=== PATIENT | male | born 1955 | race Caucasian/White ===

== ENCOUNTER 2024-11-02 08:46 | Emergency (ER) | payer MEDICARE ==
[~2024-11-02] VITALS: Ht 180.3 cm; Wt 77.3 kg
[~2024-11-02 08:46] MED LIST: RANI-648 PO
[2024-11-02 08:51] VITALS: TEMP 97.6
[2024-11-02] MEDS: morphine 4 MG/ML inj SYRINge IV ONE (09:22)
[2024-11-02] MEDS: ondansetron/PF 4mg/2ml inj IV ONE (09:22)
[2024-11-02 09:45] LABS: BASOPHILS % (AUTO) 1.3 % (0-1); EOSINOPHILS # (AUTO) 0.1 X10'3 (0-0.9); EOSINOPHILS % (AUTO) 3.6 % (0-6); HEMATOCRIT 43.2 % (42.0-52.0); HEMOGLOBIN 15.3 g/dl (14.0-17.9); LYMPHOCYTES # (AUTO) 1.2 X10'3 (1.1-4.8); LYMPHOCYTES % (AUTO) 35.5 % (21-51); MEAN CORPUSCULAR HEMOGLOBIN 33.6 PG (27.0-31.0); MEAN CORPUSCULAR HGB CONC 35.4 g/dL (33.0-36.5); MEAN CORPUSCULAR VOLUME 94.9 FL (78-98); MEAN PLATELET VOLUME 6.8 FL (7.4-10.4); MONOCYTES # (AUTO) 0.4 X10'3 (0-0.9); MONOCYTES % (AUTO) 10.7 % (2-12); NEUTROPHILS # (AUTO) 1.6 X10'3 (1.8-7.7); NEUTROPHILS % (AUTO) 48.9 % (42-75); PLATELET COUNT 269 X10'3 (140-440); RED BLOOD COUNT 4.55 X10'6 (4.70-6.10); WHITE BLOOD COUNT 3.3 X10'3 (4.5-11.0)
[2024-11-02 10:08] LABS: ALANINE AMINOTRANSFERASE 22 U/L (12-78); ALBUMIN 3.7 G/DL (3.4-5.0); ALBUMIN/GLOBULIN RATIO 1.3 (1.1-1.5); ALKALINE PHOSPHATASE 70 IU/L (46-116); ANION GAP 9 (8-16); ASPARTATE AMINO TRANSFERASE 13 U/L (10-37); BILIRUBIN,TOTAL 0.6 MG/DL (0.1-1.0); BLOOD UREA NITROGEN 19 MG/DL (7-18); CALCIUM 8.8 MG/DL (8.5-10.1); CHLORIDE 105 MMOL/L (99-107); CREATININE 0.76 MG/DL (0.60-1.10); GLUCOSE 128 MG/DL (70-104); POTASSIUM 3.8 MMOL/L (3.5-5.1); SODIUM 140 MMOL/L (135-145); TOTAL CARBON DIOXIDE 26.2 MMOL/L (24-32); TOTAL PROTEIN 6.6 G/DL (6.4-8.2); eCRCL 100 ML/MIN; eGFR > 90 ML/MIN
[2024-11-02 10:16] LABS: PRO BRAIN NATRIURETIC PEPTIDE < 30 PG/ML (0-125)
[2024-11-02] MEDS ORDERED: aminophylline 250mg/10ml inj. IV PRN (10:45)
[2024-11-02] MEDS ORDERED: magnesium sulf-water 4G/100mL 100 ML IV PRN (10:45)
[2024-11-02] MEDS ORDERED: metoprolol tartrate 1mg/ml inj IV PRN (10:45)
[2024-11-02] MEDS ORDERED: potassium Cl 20 mEq SR tablet PO PRN ×2 (10:45)
[2024-11-02] MEDS ORDERED: regadenoson 0.4mg/5ml syringe IV PRN (10:45)
[2024-11-02] MEDS ORDERED: acetaminophen 325mg tablet PO PRN ×2 (10:45)
[2024-11-02] MEDS ORDERED: HYDROcodone/acetaminophen 10/325mg tab PO PRN (10:45)
[2024-11-02] MEDS ORDERED: HYDROcodone/acetaminophen 5mg/325mg tablet PO PRN (10:45)
[2024-11-02] MEDS ORDERED: magnesium sulf-water 2g/50mL 50 ML IV PRN (10:45)
[2024-11-02] MEDS ORDERED: nitroGLYCERIN 0.4mg SUBLingual tab SL PRN (10:45)
[2024-11-02] MEDS ORDERED: bisacodyl 10mg suppository rectal RC PRN (10:45)
[2024-11-02] MEDS ORDERED: carvedilol 6.25mg tablet PO ONE (10:45)
[2024-11-02] MEDS ORDERED: ondansetron/PF 4mg/2ml inj IV PRN (10:45)
[2024-11-02] MEDS ORDERED: potassium Cl 40MEQ/1/2NS 520ml 520 ML IV PRN (10:45)
[2024-11-02] MEDS ORDERED: PERFLUTREN PROTEIN-A MICROSPHR (Optison) 0.22 MG/ML 3ML VIAL IV ONE (10:45)
[2024-11-02] MEDS ORDERED: mag hydrox/Alum hydrox/simeth 30ml oral suspension PO PRN (10:45)
[2024-11-02] MEDS ORDERED: atorvastatin 20mg tablet PO ONE (10:45)
[2024-11-02] MEDS: aspirin 325mg tablet PO ONE (10:54)
[2024-11-02 12:16] VITALS: BP 146/98; PULSE 76; RESP 13; O2SAT 98
[2024-11-02] MEDS ORDERED: enoxaparin 40mg/0.4ml syringe SQ SCH (20:00)
[2024-11-02] MEDS ORDERED: K and/or MAG REPLACEMENT MC SCH (20:00)
[2024-11-02] MEDS ORDERED: docusate sod 100mg capsule PO SCH (20:00)
[2024-11-03] MEDS ORDERED: ASPI-1265 PO (10:18)
[2024-11-03] MEDS ORDERED: METO-395 PO (10:18)
[2024-11-03] MEDS ORDERED: ATOR40TA72 PO (10:18)
[2024-11-03] MEDS ORDERED: TICA90TA PO (10:18)
[2024-11-03] MEDS ORDERED: NITR0.4T51 SL (14:36)
== END 2024-11-02 12:18 | disposition left against medical advice (07) ==
LOC: ER 08:47
DX: R07.89 Other chest pain (principal); Z79.899 Other long term (current) drug therapy; Z98.890 Other specified postprocedural states; Z88.8 Allergy status to other drugs, medicaments and biological substances
CPT/HCPCS: 36415; 71045; 80053; 83880; 84484; 85025; 93005; 96374; 96375; 99285; J2270; J2405

== ENCOUNTER 2024-11-02 13:04 | Inpatient (IN) | payer MEDICARE ==
[~2024-11-02] VITALS: Ht 180.3 cm; Wt 78.7 kg
[2024-11-02] VITALS (7 sets, daily range): BP systolic 108–130; BP diastolic 61–87; PULSE 63–80; RESP 14–18; TEMP 97.5–97.7; O2SAT 98–99
[2024-11-02] MEDS ORDERED: heparin 10,000 units/1 ML INJ IV PRN (13:25)
[2024-11-02] MEDS ORDERED: heparin 25,000 UNIT/250ml bag 250 ML IV PRN (13:25)
[2024-11-02] MEDS ORDERED: potassium Cl 20 mEq SR tablet PO PRN ×2 (13:40)
[2024-11-02] MEDS ORDERED: regadenoson 0.4mg/5ml syringe IV PRN (13:40)
[2024-11-02] MEDS ORDERED: HYDROcodone/acetaminophen 5mg/325mg tablet PO PRN (13:40)
[2024-11-02] MEDS ORDERED: magnesium hydroxide 30ml (MOM) UD suspension PO PRN (13:40)
[2024-11-02] MEDS ORDERED: HYDROcodone/acetaminophen 10/325mg tab PO PRN (13:40)
[2024-11-02] MEDS ORDERED: aminophylline 250mg/10ml inj. IV PRN (13:40)
[2024-11-02] MEDS ORDERED: mag hydrox/Alum hydrox/simeth 30ml oral suspension PO PRN (13:40)
[2024-11-02] MEDS ORDERED: acetaminophen 325mg tablet PO PRN ×2 (13:40)
[2024-11-02] MEDS ORDERED: magnesium sulf-water 4G/100mL 100 ML IV PRN (13:40)
[2024-11-02] MEDS ORDERED: ondansetron/PF 4mg/2ml inj IV PRN ×2 (13:40→17:30)
[2024-11-02] MEDS ORDERED: potassium Cl 40MEQ/1/2NS 520ml 520 ML IV PRN (13:40)
[2024-11-02] MEDS ORDERED: magnesium sulf-water 2g/50mL 50 ML IV PRN (13:40)
[2024-11-02] MEDS ORDERED: metoprolol tartrate 1mg/ml inj IV PRN (13:40)
[2024-11-02 13:48] LABS: BASOPHILS % (AUTO) 0.7 % (0-1); EOSINOPHILS % (AUTO) 0.5 % (0-6); HEMATOCRIT 44.7 % (42.0-52.0); HEMOGLOBIN 15.2 g/dl (14.0-17.9); LYMPHOCYTES % (AUTO) 14.5 % (21-51); MEAN CORPUSCULAR HEMOGLOBIN 32.8 PG (27.0-31.0); MEAN CORPUSCULAR HGB CONC 34.1 g/dL (33.0-36.5); MEAN CORPUSCULAR VOLUME 96.4 FL (78-98); MEAN PLATELET VOLUME 6.7 FL (7.4-10.4); MONOCYTES # (AUTO) 0.5 X10'3 (0-0.9); MONOCYTES % (AUTO) 6.9 % (2-12); NEUTROPHILS # (AUTO) 5.2 X10'3 (1.8-7.7); NEUTROPHILS % (AUTO) 77.4 % (42-75); PLATELET COUNT 285 X10'3 (140-440); RED BLOOD COUNT 4.64 X10'6 (4.70-6.10); WHITE BLOOD COUNT 6.7 X10'3 (4.5-11.0)
[2024-11-02] MEDS: heparin 10,000 units/1 ML INJ IV ONE (13:55)
[2024-11-02] MEDS: MESSAGE TO NURSING IV ONE (13:55)
[2024-11-02] MEDS: PERFLUTREN PROTEIN-A MICROSPHR (Optison) 0.22 MG/ML 3ML VIAL IV ONE (13:56)
[2024-11-02 13:58] LABS: PROTHROMBIN TIME 10.1 SECONDS (9.0-12.0)
[2024-11-02] MEDS: normal saline 1000ml 1,000 ML IV ONE (14:03)
[2024-11-02] MEDS: metoprolol succinate 25mg (24-HOUR) SR. Tablet PO ONE (14:32)
[2024-11-02] MEDS: atorvastatin 20mg tablet PO ONE (14:32)
[2024-11-02] MEDS ORDERED: iohexol 350 MG/ML 50ML vial IV ONE (15:33)
[2024-11-02] MEDS ORDERED: iohexol 350MG/ML 100ml bottle IV ONE ×2 (15:33→16:23)
[2024-11-02] MEDS ORDERED: heparin 1,000unit/ml 10ml vial 10 ML ONE ×2 (15:33→16:23)
[2024-11-02] MEDS ORDERED: verapamil 2.5 mg/ml inj IV ONE (15:33)
[2024-11-02] MEDS ORDERED: midazolam 1 mg/ML 2ml injection ONE (15:33)
[2024-11-02] MEDS ORDERED: fentaNYL/PF 50MCG/1 ML 2ML syringe ONE (15:33)
[2024-11-02] MEDS ORDERED: LIDOcaine 1% (10mg/ml) 2ml vial ONE (15:34)
[2024-11-02] MEDS ORDERED: nitroGLYCERIN 500mcg/5mL D5W 5 ML IV ONE (15:34)
[2024-11-02] MEDS ORDERED: ticagrelor 90mg tablet ONE (16:32)
[2024-11-02] MEDS ORDERED: nitroGLYCERIN 0.4mg SUBLingual tab SL PRN (17:30)
[2024-11-02] MEDS ORDERED: OXAZEpam 15mg capsule PO PRN (17:30)
[2024-11-02] MEDS: K and/or MAG REPLACEMENT MC SCH (20:00)
[2024-11-02] MEDS: Melatonin 3mg tablet PO SCH (21:49)
[2024-11-02] MEDS: metoprolol tartrate 25mg tablet PO SCH (21:49)
[2024-11-02] MEDS: docusate sod 100mg capsule PO SCH (21:49)
[2024-11-03] VITALS (10 sets, daily range): BP systolic 95–125; BP diastolic 60–82; PULSE 57–64; RESP 8–17; TEMP 97.8–98.1; O2SAT 96–98
[2024-11-03 05:31] LABS: BASOPHILS # (AUTO) 0.1 X10'3 (0-0.2); BASOPHILS % (AUTO) 1.1 % (0-1); EOSINOPHILS # (AUTO) 0.1 X10'3 (0-0.9); EOSINOPHILS % (AUTO) 2.1 % (0-6); HEMATOCRIT 41.7 % (42.0-52.0); HEMOGLOBIN 14.2 g/dl (14.0-17.9); LYMPHOCYTES % (AUTO) 18.7 % (21-51); MEAN CORPUSCULAR HEMOGLOBIN 32.9 PG (27.0-31.0); MEAN CORPUSCULAR VOLUME 96.5 FL (78-98); MEAN PLATELET VOLUME 6.6 FL (7.4-10.4); MONOCYTES # (AUTO) 0.6 X10'3 (0-0.9); MONOCYTES % (AUTO) 10.6 % (2-12); NEUTROPHILS # (AUTO) 3.7 X10'3 (1.8-7.7); NEUTROPHILS % (AUTO) 67.5 % (42-75); PLATELET COUNT 247 X10'3 (140-440); RED BLOOD COUNT 4.32 X10'6 (4.70-6.10); RED CELL DISTRIBUTION WIDTH 13.3 % (11.5-14.5); WHITE BLOOD COUNT 5.4 X10'3 (4.5-11.0)
[2024-11-03 05:54] LABS: ALANINE AMINOTRANSFERASE 19 U/L (12-78); ALBUMIN 3.1 G/DL (3.4-5.0); ALBUMIN/GLOBULIN RATIO 1.2 (1.1-1.5); ALKALINE PHOSPHATASE 57 IU/L (46-116); ANION GAP 6 (8-16); ASPARTATE AMINO TRANSFERASE 24 U/L (10-37); BILIRUBIN,TOTAL 0.6 MG/DL (0.1-1.0); BLOOD UREA NITROGEN 11 MG/DL (7-18); BUN/CREATININE RATIO 15.7 (10.0-20.0); CHLORIDE 110 MMOL/L (99-107); CHOL/HDL RATIO 2.9 (0.00-4.99); CHOLESTEROL 186 MG/DL (0-200); GLUCOSE 102 MG/DL (70-104); HDL CHOLESTEROL 64 MG/DL (35-60); LDL CHOLESTEROL 105 MG/DL (50-100); MAGNESIUM 1.8 MG/DL (1.5-2.4); SODIUM 142 MMOL/L (135-145); TOTAL CARBON DIOXIDE 26.4 MMOL/L (24-32); TOTAL PROTEIN 5.7 G/DL (6.4-8.2); TRIGLYCERIDES 91 MG/DL (20-135); eCRCL 109 ML/MIN; eGFR > 90 ML/MIN
[2024-11-03] MEDS: ticagrelor 90mg tablet PO SCH (07:35)
[2024-11-03] MEDS: atorvastatin 20mg tablet PO SCH (07:35)
[2024-11-03] MEDS ORDERED: atorvastatin 20mg tablet PO SCH (08:00)
[2024-11-03] MEDS ORDERED: metoprolol succinate 25mg (24-HOUR) SR. Tablet PO SCH (08:00)
[2024-11-03] MEDS ORDERED: METO-395 PO (10:18)
[2024-11-03] MEDS ORDERED: TICA90TA PO (10:18)
[2024-11-03] MEDS ORDERED: ASPI-1265 PO (10:18)
[2024-11-03] MEDS ORDERED: ATOR40TA72 PO (10:18)
[2024-11-03] MEDS: PERFLUTREN PROTEIN-A MICROSPHR (Optison) 0.22 MG/ML 3ML VIAL IV ONE (11:07)
[2024-11-03] MEDS ORDERED: NITR0.4T51 SL (14:36)
== END 2024-11-03 12:00 | disposition home or self-care (01) | DRG 321 ==
LOC: ER 13:04 → ED HOLD 13:48 → PCU 3S 16:54
PROVIDERS: ADMIT Family Medicine; ATTEND Family Medicine
PROC: 027034Z Dilation of Coronary Artery, One Artery with Drug-eluting Intraluminal Device, Percutaneous Approach (ICD-10-PCS; principal; 2024-11-02)
PROC: 4A023N7 Measurement of Cardiac Sampling and Pressure, Left Heart, Percutaneous Approach (ICD-10-PCS; 2024-11-02)
PROC: B2111ZZ Fluoroscopy of Multiple Coronary Arteries using Low Osmolar Contrast (ICD-10-PCS; 2024-11-02)
PROC: B2151ZZ Fluoroscopy of Left Heart using Low Osmolar Contrast (ICD-10-PCS; 2024-11-02)
DX: I21.4 Non-ST elevation (NSTEMI) myocardial infarction (principal); I50.31 Acute diastolic (congestive) heart failure; E44.1 Mild protein-calorie malnutrition; I47.20 Ventricular tachycardia, unspecified; G89.29 Other chronic pain; M25.512 Pain in left shoulder; E78.5 Hyperlipidemia, unspecified; M25.511 Pain in right shoulder; R10.13 Epigastric pain; Z79.899 Other long term (current) drug therapy; Z68.24 Body mass index [BMI] 24.0-24.9, adult; Z88.8 Allergy status to other drugs, medicaments and biological substances; Z82.49 Family history of ischemic heart disease and other diseases of the circulatory system
CPT/HCPCS: 93458; 96361; 96374; 96375; 99285; 99291; C9600; 36415; 71045; 80053; 80061; 83735; 83880; 84484; 85025; 85610; 85730; 93005; 99152; 99153; A6258; C1725; C1751; C1769; C1874; C1894; G0378; J1644; J2003; J2250; J2270; J2405; J3010; J3490; J7030; Q9967